=== PATIENT | male | born 1975 | race Caucasian/White ===

== ENCOUNTER 2023-10-02 09:05 | Inpatient (IN) | payer OTHER ==
[2023-10-02 10:11] VITALS: BMI 24.5
[2023-10-02] MEDS ORDERED: chlordiazePOXIDE HCL 25 MG CAPSULE PO PRN (12:18)
[2023-10-02] MEDS ORDERED: IBUPROFEN 400 MG TABLET (FP) PO PRN (12:18)
[2023-10-02] MEDS ORDERED: METHOCARBAMOL 500 MG TABLET PO PRN (12:18)
[2023-10-02] MEDS ORDERED: NALOXONE HCL 0.4 MG/ML VIAL IM PRN (12:18)
[2023-10-02] MEDS ORDERED: ACETAMINOPHEN 325 MG TABLET (FP) PO PRN (12:18)
[2023-10-02] MEDS ORDERED: ONDANSETRON *ODT* 4 MG TABLET SL PRN (12:18)
[2023-10-02] MEDS ORDERED: MAG HYDROX/AL HYDROX/SIMETH 30 ML UNIT-DOSE CUP PO PRN (12:18)
[2023-10-02] MEDS ORDERED: DICYCLOMINE HCL 10 MG CAPSULE PO PRN (12:18)
[2023-10-02] MEDS ORDERED: LOPERAMIDE HCL 2 MG CAPSULE PO PRN (12:18)
[2023-10-02] MEDS ORDERED: guaiFENesin 600 MG TABLET.ER (FP) PO PRN (12:18)
[2023-10-02] MEDS ORDERED: BISMUTH SUBSALICYLATE 524 MG/30 ML PO PRN (12:18)
[2023-10-02] MEDS ORDERED: NALOXONE HCL (KLOXXADO) 8 MG SPRAY NS PRN (12:18)
[2023-10-02] MEDS ORDERED: MAGNESIUM HYDROX 2400MG/30ML ORAL SUSPENSION 30 ML CUP PO PRN (12:18)
[2023-10-02] MEDS ORDERED: NICOTINE POLACRILEX 2 MG GUM BUC PRN (12:18)
[2023-10-02] MEDS ORDERED: hydrOXYzine PAMOATE 25 MG CAPSULE (FP) PO PRN (12:18)
[2023-10-02] MEDS ORDERED: POLYETHYLENE GLYCOL (HEALTHYLAX) 3350 17 GM PACKET PO PRN (12:18)
[2023-10-02] MEDS ORDERED: BENZOCAINE/MENTHOL (CHLORASEPTIC ) LOZENGE MM PRN (12:18)
[2023-10-02] MEDS ORDERED: BENZONATATE 200 MG CAPSULE PO PRN (12:18)
[2023-10-02] MEDS ORDERED: chlordiazePOXIDE HCL 25 MG CAPSULE ONE (12:57)
[2023-10-02] MEDS ORDERED: IBUPROFEN 600 MG TABLET (FP) PO ONE (12:58)
[2023-10-02] MEDS: IBUPROFEN 600 MG TABLET (FP) PO PRN ×2 (13:00→22:31)
[2023-10-02] MEDS: chlordiazePOXIDE HCL 25 MG CAPSULE PO SCH ×2 (18:18→22:31)
[2023-10-02] MEDS ORDERED: THIAMINE HCL 100 MG TABLET (FP) PO SCH (22:00)
[2023-10-02] MEDS ORDERED: MELATONIN 5 MG TABLETS PO SCH (22:00)
[2023-10-03] MEDS: chlordiazePOXIDE HCL 25 MG CAPSULE PO SCH ×2 (05:40→10:20)
[2023-10-03 09:12] VITALS: BP 141/90; PULSE 78; RESP 16; TEMP 97.6
[2023-10-03] MEDS ORDERED: PRENATAL VITAMINS W/ FOLIC ACID TABLET (FP) PO SCH (10:00)
[2023-10-03 11:37] LABS: CHLORIDE 110 mmol/L (98-107); POTASSIUM 3.9 mmol/L (3.5-5.1); SODIUM 143 mmol/L (136-145)
[2023-10-03 11:40] LABS: HEMATOCRIT 42.6 % (35.4-49); HEMOGLOBIN 14.2 GM/dL (11.7-16.9); MCH 31.5 pg (25.7-33.7); MCHC 33.3 g/dl (32.0-35.9); MEAN CELL VOLUME 94.4 fl (80-96); MEAN PLT VOLUME 8.5 fl (7.5-11.1); PLATELET COUNT 188 10^3/uL (134-434); RBC 4.51 M/mm3 (4.00-5.60); RDW 13.6 % (11.9-15.9)
[2023-10-03 11:46] LABS: CALCIUM 8.1 mg/dL (8.5-10.1)
[2023-10-03 11:47] LABS: ALBUMIN 2.8 g/dl (3.4-5.0); ANION GAP 6 mmol/L (4-13); CO2 27 mmol/L (21-32); GLUCOSE,RANDOM 96 mg/dL (74-106)
[2023-10-03 11:50] LABS: CREATININE 0.7 mg/dL (0.55-1.3); SGOT/AST 14 U/L (15-37); SGPT/ALT 20 U/L (13-61)
[2023-10-03 11:51] LABS: BILIRUBIN,TOTAL 0.9 mg/dL (0.2-1); TOT PROT 5.1 g/dl (6.4-8.2)
[2023-10-03 11:54] LABS: ALK PHOS 65 U/L (45-117)
[2023-10-04] MEDS ORDERED: chlordiazePOXIDE HCL 25 MG CAPSULE PO SCH (05:00)
[2023-10-05] MEDS ORDERED: chlordiazePOXIDE HCL 10 MG CAPSULE PO PRN
[2023-10-05] MEDS ORDERED: chlordiazePOXIDE HCL 10 MG CAPSULE PO SCH (05:00)
[2023-10-06] MEDS ORDERED: chlordiazePOXIDE HCL 10 MG CAPSULE PO SCH (05:00)
[2023-10-07] MEDS ORDERED: chlordiazePOXIDE HCL 10 MG CAPSULE PO ONE (05:00)
== END 2023-10-03 12:34 | disposition left against medical advice (07) | DRG 770 ==
LOC: SUATTDRO 09:05 → YASAS 09:05 → Y3N 12:10
PROVIDERS: ADMIT Allergy & Immunology; ATTEND Surgery
PROC: HZ2ZZZZ Detoxification Services for Substance Abuse Treatment (ICD-10-PCS; principal; 2023-10-02)
DX: F10.230 Alcohol dependence with withdrawal, uncomplicated (principal); F17.210 Nicotine dependence, cigarettes, uncomplicated; F41.8 Other specified anxiety disorders; G47.00 Insomnia, unspecified; I10 Essential (primary) hypertension; Z86.69 Personal history of other diseases of the nervous system and sense organs
CPT/HCPCS: 36415; 80053; 80307; 85027; 86780; 87635; 87811

== ENCOUNTER 2024-03-28 15:06 | Inpatient (IN) | payer OTHER ==
[2024-03-28 18:03] VITALS: BMI 23.2
[2024-03-28] MEDS ORDERED: BENZOCAINE/MENTHOL (CHLORASEPTIC ) LOZENGE MM PRN (18:44)
[2024-03-28] MEDS ORDERED: NICOTINE POLACRILEX 2 MG GUM BUC PRN (18:44)
[2024-03-28] MEDS ORDERED: POLYETHYLENE GLYCOL (HEALTHYLAX) 3350 17 GM PACKET PO PRN (18:44)
[2024-03-28] MEDS ORDERED: LOPERAMIDE HCL 2 MG CAPSULE PO PRN (18:44)
[2024-03-28] MEDS ORDERED: IBUPROFEN 400 MG TABLET (FP) PO PRN (18:44)
[2024-03-28] MEDS ORDERED: ONDANSETRON *ODT* 4 MG TABLET SL PRN (18:44)
[2024-03-28] MEDS ORDERED: BENZONATATE 200 MG CAPSULE PO PRN (18:44)
[2024-03-28] MEDS ORDERED: BISMUTH SUBSALICYLATE 524 MG/30 ML PO PRN (18:44)
[2024-03-28] MEDS ORDERED: guaiFENesin 600 MG TABLET.ER (FP) PO PRN (18:44)
[2024-03-28] MEDS ORDERED: DICYCLOMINE HCL 10 MG CAPSULE PO PRN (18:44)
[2024-03-28] MEDS: ASPIRIN 325 MG ENTERIC COATED TABLET (FP) PO SCH (19:59)
[2024-03-28] MEDS: ACETAMINOPHEN 325 MG TABLET (FP) PO PRN (19:59)
[2024-03-28] MEDS: MELATONIN 5 MG TABLETS PO SCH (22:00)
[2024-03-28] MEDS: THIAMINE 100 MG TABLET PO SCH (22:00)
[2024-03-28] MEDS: HYDROCORTISONE 2.5% TOPICAL CREAM 30 GM TUBE TP PRN (22:52)
[2024-03-29] MEDS: METHOCARBAMOL 500 MG TABLET PO PRN (05:24)
[2024-03-29] MEDS: hydrOXYzine PAMOATE 25 MG CAPSULE (FP) PO PRN (05:24)
[2024-03-29] MEDS: CHLORTHALIDONE 25 MG TABLET PO SCH (09:32)
[2024-03-29] MEDS: PRENATAL VITAMINS W/ FOLIC ACID TABLET (FP) PO SCH (09:32)
[2024-03-29] MEDS: PANTOPRAZOLE 40 MG TABLET PO SCH (09:32)
[2024-03-29] MEDS: LISINOPRIL 20 MG TABLET PO SCH (09:33)
[2024-03-29] MEDS ORDERED: chlordiazePOXIDE HCL 25 MG CAPSULE PO PRN (10:03)
[2024-03-29] MEDS: chlordiazePOXIDE HCL 25 MG CAPSULE PO SCH (11:06)
[2024-03-29] MEDS ORDERED: diazePAM 5 MG TABLET PO PRN (11:40)
[2024-03-29 12:10] LABS: HEMATOCRIT 43.3 % (35.4-49); HEMOGLOBIN 14.7 GM/dL (11.7-16.9); MCH 32.4 pg (25.7-33.7); MEAN CELL VOLUME 95.3 fl (80-96); MEAN PLT VOLUME 8.7 fl (7.5-11.1); PLATELET COUNT 203 10^3/uL (134-434); RBC 4.54 M/mm3 (4.00-5.60); RDW 13.2 % (11.9-15.9); WHITE BLOOD COUNT 5.6 K/mm3 (4.0-10.0)
[2024-03-29 12:13] LABS: CHLORIDE 106 mmol/L (98-107); POTASSIUM 3.9 mmol/L (3.5-5.1); SODIUM 140 mmol/L (136-145)
[2024-03-29 12:24] LABS: ALBUMIN 3.1 g/dl (3.4-5.0); ANION GAP 1 mmol/L (4-13); CALCIUM 9.1 mg/dL (8.5-10.1); CO2 33 mmol/L (21-32); GLUCOSE,RANDOM 101 mg/dL (74-106)
[2024-03-29 12:26] LABS: BLOOD UREA NITROGEN 18.7 mg/dL (7-18); SGOT/AST 22 U/L (15-37); SGPT/ALT 27 U/L (13-61)
[2024-03-29 12:28] LABS: BILIRUBIN,TOTAL 0.6 mg/dL (0.2-1); CREATININE 0.9 mg/dL (0.55-1.3); TOT PROT 5.8 g/dl (6.4-8.2)
[2024-03-29 12:29] LABS: ALK PHOS 79 U/L (45-117)
[2024-03-29] MEDS: diazePAM 5 MG TABLET PO SCH (17:27)
[2024-03-29] MEDS: IBUPROFEN 600 MG TABLET (FP) PO PRN (17:28)
[2024-03-30] MEDS: amLODIPine BESYLATE 5 MG TABLET (FP) PO ONE (21:07)
[2024-03-31] MEDS ORDERED: chlordiazePOXIDE HCL 25 MG CAPSULE PO SCH (05:00)
[2024-03-31] MEDS: diazePAM 5 MG TABLET PO SCH (05:31)
[2024-04-01] MEDS ORDERED: chlordiazePOXIDE HCL 10 MG CAPSULE PO PRN
[2024-04-01] MEDS ORDERED: chlordiazePOXIDE HCL 10 MG CAPSULE PO SCH (05:00)
[2024-04-01] MEDS: diazePAM 5 MG TABLET PO SCH (05:21)
[2024-04-01 12:08] LABS: BASO % 1.1 % (0-2.0); EOS % 11.2 % (0-4.5); HEMATOCRIT 43.4 % (35.4-49); HEMOGLOBIN 15.1 GM/dL (11.7-16.9); LYMPH % 35.8 % (8-40); MCH 32.7 pg (25.7-33.7); MCHC 34.7 g/dl (32.0-35.9); MEAN CELL VOLUME 94.1 fl (80-96); MEAN PLT VOLUME 8.5 fl (7.5-11.1); MONO % 8.1 % (3.8-10.2); NEUT % 43.8 % (42.8-82.8); PLATELET COUNT 196 10^3/uL (134-434); POTASSIUM 3.8 mmol/L (3.5-5.1); RBC 4.61 M/mm3 (4.00-5.60); RDW 13.2 % (11.9-15.9); WHITE BLOOD COUNT 6.9 K/mm3 (4.0-10.0)
[2024-04-01] MEDS: MAGNESIUM HYDROX 2400MG/30ML ORAL SUSPENSION 30 ML CUP PO PRN (12:11)
[2024-04-01 12:18] LABS: BLOOD UREA NITROGEN 16.6 mg/dL (7-18); CALCIUM 9.1 mg/dL (8.5-10.1)
[2024-04-01 12:20] LABS: CREATININE 0.9 mg/dL (0.55-1.3)
[2024-04-01] MEDS: MAG HYDROX/AL HYDROX/SIMETH 30 ML UNIT-DOSE CUP PO PRN (13:50)
[2024-04-02] MEDS ORDERED: chlordiazePOXIDE HCL 10 MG CAPSULE PO SCH (05:00)
[2024-04-02] MEDS: diazePAM 5 MG TABLET PO ONE (06:35)
[2024-04-02] MEDS: amLODIPine BESYLATE 5 MG TABLET (FP) PO ONE (17:40)
[2024-04-02 20:20] VITALS: RESP 18
[2024-04-03] MEDS ORDERED: chlordiazePOXIDE HCL 10 MG CAPSULE PO ONE (05:00)
[2024-04-03 08:49] VITALS: BP 126/81; PULSE 69; TEMP 99.1
== END 2024-04-03 11:22 | disposition other institution (70) | DRG 774 ==
LOC: YASAS 15:06 → Y3N 19:27
PROVIDERS: ADMIT Allergy & Immunology; ATTEND Surgery
PROC: HZ2ZZZZ Detoxification Services for Substance Abuse Treatment (ICD-10-PCS; principal; 2024-03-28)
DX: F10.230 Alcohol dependence with withdrawal, uncomplicated (principal); F14.20 Cocaine dependence, uncomplicated; F17.210 Nicotine dependence, cigarettes, uncomplicated; I10 Essential (primary) hypertension; J45.909 Unspecified asthma, uncomplicated; K21.9 Gastro-esophageal reflux disease without esophagitis; K64.9 Unspecified hemorrhoids
CPT/HCPCS: 36415; 80048; 80053; 80305; 80307; 85025; 85027; 86780; 87811; 93005; 93010

== ENCOUNTER 2024-04-03 11:33 | Inpatient (IN) | payer OTHER ==
[2024-04-03] MEDS ORDERED: IBUPROFEN 400 MG TABLET (FP) PO PRN (14:05)
[2024-04-03] MEDS ORDERED: LOPERAMIDE HCL 2 MG CAPSULE PO PRN (14:05)
[2024-04-03] MEDS ORDERED: NICOTINE POLACRILEX 4 MG LOZENGE BC PRN (14:05)
[2024-04-03] MEDS ORDERED: NICOTINE POLACRILEX 4 MG GUM BUC PRN (14:05)
[2024-04-03] MEDS ORDERED: BENZOCAINE/MENTHOL (CHLORASEPTIC ) LOZENGE MM PRN (14:05)
[2024-04-03] MEDS ORDERED: BENZONATATE 200 MG CAPSULE PO PRN (14:05)
[2024-04-03] MEDS ORDERED: NALOXONE HCL 0.4 MG/ML VIAL IVPUSH PRN (14:05)
[2024-04-03] MEDS ORDERED: MAG HYDROX/AL HYDROX/SIMETH 30 ML UNIT-DOSE CUP PO PRN (14:05)
[2024-04-03] MEDS ORDERED: DOCUSATE SODIUM 100 MG CAPSULE (FP) PO PRN (14:05)
[2024-04-03] MEDS ORDERED: guaiFENesin 600 MG TABLET.ER (FP) PO PRN (14:05)
[2024-04-03] MEDS: MELATONIN 5 MG TABLETS PO SCH (21:08)
[2024-04-03] MEDS: METHOCARBAMOL 500 MG TABLET PO PRN (21:08)
[2024-04-03] MEDS: THIAMINE 100 MG TABLET PO SCH (21:08)
[2024-04-03] MEDS: IBUPROFEN 600 MG TABLET (FP) PO PRN (21:08)
[2024-04-04] MEDS: LISINOPRIL 20 MG TABLET PO SCH (09:31)
[2024-04-04] MEDS: CHLORTHALIDONE 25 MG TABLET PO SCH (09:31)
[2024-04-04] MEDS: PRENATAL VITAMINS W/ FOLIC ACID TABLET (FP) PO SCH (09:31)
[2024-04-04] MEDS: PANTOPRAZOLE 40 MG TABLET PO SCH (09:31)
[2024-04-04] MEDS: POLYETHYLENE GLYCOL (HEALTHYLAX) 3350 17 GM PACKET PO SCH (09:32)
[2024-04-04] MEDS: ASPIRIN 325 MG ENTERIC COATED TABLET (FP) PO SCH (09:32)
[2024-04-04] MEDS: NICOTINE 21 MG/24 HOURS TOPICAL PATCH TD SCH (14:23)
[2024-04-05] MEDS: ACETAMINOPHEN 325 MG TABLET (FP) PO PRN (21:05)
[2024-04-05] MEDS: MAGNESIUM HYDROX 2400MG/30ML ORAL SUSPENSION 30 ML CUP PO PRN (22:26)
[2024-04-06] MEDS: hydrOXYzine PAMOATE 25 MG CAPSULE (FP) PO PRN (21:30)
[2024-04-10 19:11] LABS: HIV INTERPRETATION NEGATIVE (NEGATIVE)
[2024-04-12] MEDS: MELATONIN 5 MG TABLETS PO SCH (21:04)
[2024-04-13] MEDS: HYDROCORTISONE 2.5% TOPICAL CREAM 30 GM TUBE RC PRN (10:27)
[2024-04-13] MEDS: AMOX TR/POT CLAV 500MG/125MG TABLETS (FP) PO SCH (17:02)
[2024-04-13] MEDS: POLYETHYLENE GLYCOL (HEALTHYLAX) 3350 17 GM PACKET PO PRN (21:39)
[2024-04-16] MEDS: BENZOCAINE 20 % GEL TUBE MM PRN (12:20)
[2024-04-20 06:17] VITALS: RESP 16; TEMP 97.5
[2024-04-20 09:09] VITALS: BP 130/84; PULSE 94
== END 2024-04-20 10:14 | disposition home or self-care (01) | DRG 772 ==
LOC: YASAS 11:33 → Y3W 11:35
PROVIDERS: ADMIT Allergy & Immunology; ATTEND Psychiatry & Neurology Pain Medicine
PROC: HZ42ZZZ Group Counseling for Substance Abuse Treatment, Cognitive-Behavioral (ICD-10-PCS; principal; 2024-04-03)
DX: F14.20 Cocaine dependence, uncomplicated (principal); F10.20 Alcohol dependence, uncomplicated; F17.210 Nicotine dependence, cigarettes, uncomplicated; F41.8 Other specified anxiety disorders; G47.00 Insomnia, unspecified; I10 Essential (primary) hypertension; J45.909 Unspecified asthma, uncomplicated; K21.9 Gastro-esophageal reflux disease without esophagitis; K64.9 Unspecified hemorrhoids; K02.9 Dental caries, unspecified; Z86.69 Personal history of other diseases of the nervous system and sense organs
CPT/HCPCS: 36415; 83036; 86803; 87389

== ENCOUNTER 2024-08-30 09:41 | Inpatient (IN) | payer OTHER ==
[2024-08-30 10:13] VITALS: BMI 25.4
[2024-08-30] MEDS ORDERED: BENZOCAINE/MENTHOL (CHLORASEPTIC ) LOZENGE MM PRN (10:51)
[2024-08-30] MEDS ORDERED: BENZONATATE 200 MG CAPSULE PO PRN (10:51)
[2024-08-30] MEDS ORDERED: DICYCLOMINE HCL 10 MG CAPSULE PO PRN (10:51)
[2024-08-30] MEDS ORDERED: LOPERAMIDE HCL 2 MG CAPSULE PO PRN (10:51)
[2024-08-30] MEDS ORDERED: IBUPROFEN 400 MG TABLET (FP) PO PRN (10:51)
[2024-08-30] MEDS ORDERED: ONDANSETRON *ODT* 4 MG TABLET SL PRN (10:51)
[2024-08-30] MEDS ORDERED: POLYETHYLENE GLYCOL (HEALTHYLAX) 3350 17 GM PACKET PO PRN (10:51)
[2024-08-30] MEDS ORDERED: BISMUTH SUBSALICYLATE 262 MG/15 ML BTL PO PRN (10:51)
[2024-08-30] MEDS ORDERED: NALOXONE (NARCAN) HCL 4 MG/0.1 ML SPRAY NS PRN (10:51)
[2024-08-30] MEDS ORDERED: NALOXONE (NYS OPIOID OVERDOSE PROGRAM) 4 MG/0.1 ML SPRAY NS PRN (10:51)
[2024-08-30] MEDS ORDERED: MAGNESIUM HYDROX 2400MG/30ML ORAL SUSPENSION 30 ML CUP PO PRN (10:51)
[2024-08-30] MEDS ORDERED: hydrOXYzine PAMOATE 25 MG CAPSULE (FP) PO PRN (10:51)
[2024-08-30] MEDS ORDERED: IBUPROFEN 600 MG TABLET (FP) PO PRN (10:51)
[2024-08-30] MEDS ORDERED: guaiFENesin 600 MG TABLET.ER (FP) PO PRN (10:51)
[2024-08-30] MEDS ORDERED: MAG HYDROX/AL HYDROX/SIMETH 30 ML UNIT-DOSE CUP PO PRN (10:51)
[2024-08-30] MEDS ORDERED: PRENATAL VITAMINS W/ FOLIC ACID TABLET (FP) PO ONE (11:42)
[2024-08-30] MEDS: PRENATAL VITAMINS W/ FOLIC ACID TABLET (FP) PO SCH (11:45)
[2024-08-30] MEDS ORDERED: ACETAMINOPHEN 325 MG TABLET (FP) ONE (11:52)
[2024-08-30] MEDS: ACETAMINOPHEN 325 MG TABLET (FP) PO PRN (11:53)
[2024-08-30] MEDS: ASPIRIN 325 MG ENTERIC COATED TABLET (FP) PO SCH (16:52)
[2024-08-30] MEDS: PANTOPRAZOLE 40 MG TABLET PO SCH (16:52)
[2024-08-30] MEDS: CHLORTHALIDONE 25 MG TABLET PO SCH (16:52)
[2024-08-30] MEDS: LISINOPRIL 20 MG TABLET PO SCH (16:52)
[2024-08-30] MEDS: POLYETHYLENE GLYCOL (HEALTHYLAX) 3350 17 GM PACKET PO SCH (16:56)
[2024-08-30] MEDS: MELATONIN 5 MG TABLETS PO SCH (21:38)
[2024-08-30] MEDS: THIAMINE 100 MG TABLET PO SCH (21:38)
[2024-08-31] MEDS ORDERED: diazePAM 5 MG TABLET PO PRN (08:40)
[2024-08-31] MEDS: diazePAM 5 MG TABLET PO SCH (10:13)
[2024-08-31 11:28] LABS: HEMATOCRIT 47.1 % (35.4-49); HEMOGLOBIN 15.5 GM/dL (11.7-16.9); MCH 31.3 pg (25.7-33.7); MCHC 32.9 g/dl (32.0-35.9); MEAN CELL VOLUME 95.1 fl (80-96); MEAN PLT VOLUME 8.6 fl (7.5-11.1); PLATELET COUNT 207 10^3/uL (134-434); RBC 4.96 M/mm3 (4.00-5.60); RDW 13.4 % (11.9-15.9); WHITE BLOOD COUNT 6.4 K/mm3 (4.0-10.0)
[2024-08-31 11:33] LABS: POTASSIUM 4.5 mmol/L (3.5-5.1)
[2024-08-31 11:41] LABS: ALBUMIN 3.3 g/dl (3.4-5.0); BLOOD UREA NITROGEN 20.4 mg/dL (7-18); CALCIUM 9.1 mg/dL (8.5-10.1)
[2024-08-31 11:44] LABS: CREATININE 0.9 mg/dL (0.55-1.3)
[2024-08-31 11:46] LABS: BILIRUBIN,TOTAL 0.5 mg/dL (0.2-1)
[2024-08-31] MEDS: hydrOXYzine PAMOATE 25 MG CAPSULE (FP) PO ONE (21:34)
[2024-08-31] MEDS: METHOCARBAMOL 500 MG TABLET PO PRN (21:35)
[2024-09-01] MEDS: diazePAM 5 MG TABLET PO SCH (06:12)
[2024-09-01] MEDS: HYDROCORTISONE 2.5% TOPICAL CREAM 30 GM TUBE RC PRN (10:40)
[2024-09-02 06:07] VITALS: RESP 16
[2024-09-02 09:25] VITALS: BP 133/84; PULSE 67; TEMP 97.9
[2024-09-02] MEDS: diazePAM 5 MG TABLET PO ONE (10:17)
== END 2024-09-02 12:36 | disposition home or self-care (01) | DRG 774 ==
LOC: YASAS 09:41 → Y3N 11:39
PROVIDERS: ADMIT Allergy & Immunology; ATTEND Surgery
PROC: HZ2ZZZZ Detoxification Services for Substance Abuse Treatment (ICD-10-PCS; principal; 2024-08-30)
DX: F10.230 Alcohol dependence with withdrawal, uncomplicated (principal); F14.20 Cocaine dependence, uncomplicated; F12.20 Cannabis dependence, uncomplicated; F17.210 Nicotine dependence, cigarettes, uncomplicated; F41.9 Anxiety disorder, unspecified; F32.A Depression, unspecified; I10 Essential (primary) hypertension; K21.9 Gastro-esophageal reflux disease without esophagitis; M54.50 Low back pain, unspecified; G89.29 Other chronic pain; K64.4 Residual hemorrhoidal skin tags
CPT/HCPCS: 36415; 80053; 80305; 80307; 85027; 86780; 93005; 93010

== ENCOUNTER 2025-01-30 20:20 | Inpatient (IN) | payer OTHER ==
[2025-01-30 21:01] VITALS: BMI 24.2
[2025-01-30] MEDS ORDERED: NICOTINE POLACRILEX 4 MG GUM BUC PRN (21:09)
[2025-01-30] MEDS ORDERED: guaiFENesin 600 MG TABLET.ER (FP) PO PRN (21:09)
[2025-01-30] MEDS ORDERED: IBUPROFEN 400 MG TABLET (FP) PO PRN (21:09)
[2025-01-30] MEDS ORDERED: MAGNESIUM HYDROX 2400MG/30ML ORAL SUSPENSION 30 ML CUP PO PRN (21:09)
[2025-01-30] MEDS ORDERED: NALOXONE (NARCAN) HCL 4 MG/0.1 ML SPRAY NS PRN (21:09)
[2025-01-30] MEDS ORDERED: hydrOXYzine PAMOATE 25 MG CAPSULE (FP) PO PRN (21:09)
[2025-01-30] MEDS ORDERED: BISMUTH SUBSALICYLATE 524 MG/30 ML PO PRN (21:09)
[2025-01-30] MEDS ORDERED: DICYCLOMINE HCL 10 MG CAPSULE PO PRN (21:09)
[2025-01-30] MEDS ORDERED: BENZOCAINE/MENTHOL (CHLORASEPTIC ) LOZENGE MM PRN (21:09)
[2025-01-30] MEDS ORDERED: BENZONATATE 200 MG CAPSULE PO PRN (21:09)
[2025-01-30] MEDS ORDERED: LOPERAMIDE HCL 2 MG CAPSULE PO PRN (21:09)
[2025-01-30] MEDS ORDERED: IBUPROFEN 600 MG TABLET (FP) PO PRN (21:09)
[2025-01-30] MEDS ORDERED: ONDANSETRON *ODT* 4 MG TABLET SL PRN (21:09)
[2025-01-30] MEDS ORDERED: ACETAMINOPHEN 325 MG TABLET (FP) PO PRN (21:09)
[2025-01-30] MEDS ORDERED: MAG HYDROX/AL HYDROX/SIMETH 30 ML UNIT-DOSE CUP PO PRN (21:09)
[2025-01-30] MEDS ORDERED: METHOCARBAMOL 500 MG TABLET ONE (23:47)
[2025-01-30] MEDS ORDERED: MELATONIN 5 MG TABLETS ONE (23:47)
[2025-01-30] MEDS: METHOCARBAMOL 500 MG TABLET PO PRN (23:49)
[2025-01-30] MEDS: THIAMINE 100 MG TABLET PO SCH (23:49)
[2025-01-30] MEDS: MELATONIN 5 MG TABLETS PO SCH (23:49)
[2025-01-31] MEDS ORDERED: LORazepam 1 MG TABLET PO PRN (08:18)
[2025-01-31] MEDS: CHLORTHALIDONE 25 MG TABLET PO SCH (11:00)
[2025-01-31] MEDS: ASPIRIN 325 MG ENTERIC COATED TABLET (FP) PO SCH (11:00)
[2025-01-31] MEDS: NICOTINE 14 MG/24 HOURS TOPICAL PATCH TD SCH (11:00)
[2025-01-31 11:09] LABS: HEMATOCRIT 41.9 % (40.1-51.0); HEMOGLOBIN 14.2 g/dL (13.7-17.5); MCHC 33.9 g/dl (32.3-36.5); MEAN CELL VOLUME 90.9 fl (79.0-92.2); MEAN PLT VOLUME 10.6 fl (9.4-12.4); PLATELET COUNT 230 x10^3/uL (163-337); RDW 12.8 % (12.1-15.9)
[2025-01-31] MEDS: PRENATAL VITAMINS W/ FOLIC ACID TABLET (FP) PO SCH (11:12)
[2025-01-31] MEDS: LORazepam 2 MG TABLET PO SCH (11:13)
[2025-01-31] MEDS: NALTREXONE HCL 50 MG TABLET PO ONE (11:13)
[2025-01-31] MEDS: NALTREXONE HCL 50 MG TABLET PO SCH (11:13)
[2025-01-31 11:17] LABS: CHLORIDE 102 mmol/L (98-107); POTASSIUM 3.5 mmol/L (3.5-5.1); SODIUM 139 mmol/L (136-145)
[2025-01-31 11:22] LABS: ALBUMIN 3.6 g/dl (3.4-5.0); ANION GAP 5 mmol/L (4-13); BLOOD UREA NITROGEN 16.1 mg/dL (7-18); CO2 33 mmol/L (21-32); GLUCOSE,RANDOM 78 mg/dL (74-106)
[2025-01-31 11:24] LABS: SGPT/ALT 31 U/L (13-61)
[2025-01-31 11:25] LABS: SGOT/AST 30 U/L (15-37)
[2025-01-31 11:26] LABS: BILIRUBIN,TOTAL 0.6 mg/dL (0.2-1); TOT PROT 6.2 g/dl (6.4-8.2)
[2025-01-31 11:27] LABS: ALK PHOS 76 U/L (45-117)
[2025-01-31] MEDS: MIRTAZAPINE 15 MG TABLET (FP) PO SCH (22:34)
[2025-02-01] MEDS: POLYETHYLENE GLYCOL (HEALTHYLAX) 3350 17 GM PACKET PO PRN (22:04)
[2025-02-02] MEDS: LORazepam 1 MG TABLET PO SCH (06:00)
[2025-02-02 08:55] VITALS: BP 124/80; PULSE 64; RESP 18; TEMP 97.5
[2025-02-03] MEDS ORDERED: LORazepam 0.5 MG TABLET PO PRN
[2025-02-03] MEDS ORDERED: LORazepam 0.5 MG TABLET PO SCH (05:00)
[2025-02-04] MEDS ORDERED: LORazepam 0.5 MG TABLET PO ONE (05:00)
== END 2025-02-02 11:32 | disposition home or self-care (01) | DRG 774 ==
LOC: YASAS 20:20 → Y3N 23:47
PROVIDERS: ADMIT Allergy & Immunology; ATTEND Allergy & Immunology
PROC: HZ2ZZZZ Detoxification Services for Substance Abuse Treatment (ICD-10-PCS; principal; 2025-01-30)
DX: F10.230 Alcohol dependence with withdrawal, uncomplicated (principal); F14.20 Cocaine dependence, uncomplicated; F17.210 Nicotine dependence, cigarettes, uncomplicated; F19.24 Other psychoactive substance dependence with psychoactive substance-induced mood disorder; G47.00 Insomnia, unspecified; I10 Essential (primary) hypertension; M54.50 Low back pain, unspecified; G89.29 Other chronic pain; Z87.19 Personal history of other diseases of the digestive system
CPT/HCPCS: 36415; 80053; 80305; 80307; 83036; 84153; 85027; 86780; 93005; 93010